=== PATIENT | male | born 1995 | race Caucasian/White ===

== ENCOUNTER 2020-12-12 | Outpatient (CLI) | payer BC, SELFPAY | END 2020-12-12 00:01 | disposition home or self-care (01) | LOC: RADSHAW 08-28 15:24 | PROVIDERS: PCP Family Medicine; Visit Provider Nurse Practitioner Family | DX: H53.9 Unspecified visual disturbance (principal); R20.2 Paresthesia of skin; Z13.6 Encounter for screening for cardiovascular disorders | CPT/HCPCS: 80053; 80061; 82306; 82607; 83036; 84443; 85025 ==